=== PATIENT | male | born 1970 | race Caucasian/White ===

== ENCOUNTER 2021-09-15 12:12 | Emergency (ER) | payer BC, SELFPAY ==
[2021-09-15 12:31] VITALS: BP 180/107; PULSE 102; RESP 16; TEMP 36.8; O2SAT 98
--- NOTE | 2021-09-15 12:47 | ECG_ITS ---
Measurements Intervals [place] Rate: 96 P: 15 GA: 147 QRS: -1 QRSD: 101 T: 18 QT: 365 QTc: 463 Interpretive Statements SINUS RHYTHM INCOMPLETE RIGHT BUNDLE BRANCH BLOCK [90+ ms QRS DURATION, TERMINAL R IN V1/V2, 40+ ms S IN I/aVL/V4/V5/V6] INTERPRETATION BASED ON A DEFAULT AGE OF 40 YEARS NO PREVIOUS ECG AVAILABLE FOR COMPARISON Electronically Signed On 09-18-2021 14:15:04 CDT by Cely Lawson M.D.
[2021-09-15 13:01] LABS: Basophils Absolute Auto 0.02 K/mm3 (0.00-0.10); Basophils Percent Auto 0.3 % (0.0-1.0); Eosinophils Absolute Auto 0.05 K/mm3 (0.02-0.50); Eosinophils Percent Auto 0.7 % (1.0-6.0); Hematocrit 46.9 % (40.0-54.0); Hemoglobin 15.6 g/dL (14.0-18.0); Immature Granulocyte Absolute 0.02 K/mm3 (0.00-0.00); Immature Granulocyte Percent A 0.3 % (0.0-0.0); Lymphocytes Absolute Auto 0.65 K/mm3 (1.10-4.50); Lymphocytes Percent Auto 9.5 % (18.0-42.0); Mean Corpuscular HGB Conc 33.3 g/dL (32.0-36.0); Mean Corpuscular Volume 84.1 fL (78.0-102.0); Mean Platelet Volume 10.1 fl (8.7-11.0); Monocytes Absolute Auto 0.55 K/mm3 (0.10-0.90); Monocytes Percent Auto 8.1 % (2.0-11.0); Neutrophils Absolute Auto 5.5 K/mm3 (1.7-7.2); Neutrophils Percent Auto 81.1 % (50.0-70.0); Platelet Count Result 174 K/mm3 (150-420); Red Blood Count 5.58 M/mm3 (4.70-6.10); Red Cell Distribution Width 14.1 % (11.6-14.4); White Blood Count 6.8 K/mm3 (4.8-10.8)
--- NOTE | 2021-09-15 13:01 | ED.DIZZY ---
HPI - Dizziness General Chief Complaint: Dizziness Stated Complaint: dizziness, nausea Time Seen by Provider: 09/15/21 13:03 Source: patient Mode of arrival: ambulatory Limitations: no limitations History of Present Illness HPI Narrative: This is a 50-year-old gentleman with no significant past medical history nonsmoker no alcohol use no illicit drug use presents with a dizziness/ vertigo a sensation that the room is spinning when he moves his head from side to side, with some nausea that occurred yesterday currently no nausea vomiting no headache no blurry vision no chest pain no shortness of breath no fever chills. MD elicited complaint: dizziness Onset (ago): day(s) Timing: gradual onset Severity: mild Description: sense of movement and room spinning History of similar symptoms: No Exacerbating factors: movement/ambulation and change in body position Relieving factors: remaining still Associated symptoms: denies other symptoms Related Data Allergies Allergy/AdvReac Type Severity Reaction Status Date / Time No Known Allergies Allergy Verified 09/15/21 12:34 Review of Systems Review of Systems: All systems reviewed & are unremarkable except as noted in HPI and below PMFSH Past Medical History Medical History Patient denies medical problems Family History Family History Mother Family history of type 2 diabetes mellitus Acute myocardial infarction Social History Social History Smoking status: Never smoker Exam Const: General: no acute distress and alert Orientation/consciousness: patient oriented x3 HENMT: Head: normal to inspection Ears: TM's normal bilaterally Eyes: Conjunctivae: conjunctivae normal Pupils: Equal, round and reactive pupils present EOM: EOMs intact bilaterally Direct Ophthalmoscopy: no photophobia Neck: Neck: normal visual inspection, no lymphadenopathy and no meningeal signs Chest: Chest palpation & inspection: normal inspection of the chest Resp: Effort & Inspection: normal respiratory effort Auscultation: clear to auscultation bilaterally Cardio: Rate: regular rate Rhythm: regular rhythm GI: Auscultation: normal bowel sounds : Testes: Testes normal Urinary Catheter: Urinary Catheter: patent and draining Back/Spine/Pelvis: Back: no CVA tenderness Neuro: General: patient oriented x3, moves all extremities, no meningeal signs, no focal motor deficits and CN's II-XI intact bilaterally Cranial nerves: Yes Nystagmus not present Speech: normal speech Gait exam (Neuro): Normal gait present Extrem: General: normal to inspection and no pedal edema Psych: Mental Status: mental status grossly normal Affect: normal affect Attitude: cooperative Course Course Emergency Course: patient received meclizine, symptoms have improved although while lying still he is asymptomatic, EKG and labs reviewed with patient. EKG does show incomplete right bundle-branch block and his heart rate is 96 blood pressure has improved. Vital Signs Vital signs: Vital Signs Temperature 36.8 C 09/15/21 12:31 Pulse Rate 102 H 09/15/21 12:31 Respiratory Rate 16 09/15/21 12:31 Blood Pressure 180/107 H 09/15/21 12:31 Pulse Oximetry 98 09/15/21 12:31 Temperature 36.8 C 09/15/21 12:31 Pulse Rate 102 H 09/15/21 12:31 Respiratory Rate 16 09/15/21 12:31 Blood Pressure 180/107 H 09/15/21 12:31 Pulse Oximetry 98 09/15/21 12:31 MDM - Dizziness Lab Data Result diagrams: 09/15/21 12:55 Labs: Lab Results 09/15/21 Range/Units 12:55 WBC Pending RBC Pending Hgb Pending Hct Pending MCV Pending MCH Pending MCHC Pending RDW Pending Plt Count Pending MPV Pending Immature Gran % (Auto) Pending Neut % (Auto) Pending Lymph % (Auto) Pending [place]
[2021-09-15] MEDS: MECLIZINE HCL 25 MG TABLET PO (13:07)
[2021-09-15 13:35] LABS: Alanine Aminotransferase 39 U/L (16-63); Albumin Level 3.8 g/dL (3.4-5.0); Alkaline Phosphatase 68 U/L (46-116); Anion Gap 10 mmol/L (8-16); Aspartate Amino Transferase 24 U/L (15-37); Bilirubin,Total 0.8 mg/dL (0.00-1.00); Blood Urea Nitrogen 15 mg/dL (7-18); Calcium 8.6 mg/dL (8.5-10.1); Carbon Dioxide 27 mmol/L (21-32); Chloride 101 mmol/L (98-108); Estimated Glomerular Filt Rate > 60; Glucose 117 mg/dL (70-99); Osmolality Calculated 287 mOsm/kg (285-295); Potassium 3.6 mmol/L (3.5-5.1); Sodium 138 mmol/L (136-145); Total Protein 7.7 g/dL (6.4-8.2)
[2021-09-15 13:49] VITALS: BP 175/100; PULSE 100; RESP 16; TEMP 36.8; O2SAT 98
== END 2021-09-15 13:53 | disposition home or self-care (01) ==
PROVIDERS: Emergency Provider Emergency Medicine
DX: H81.13 Benign paroxysmal vertigo, bilateral (principal)
CPT/HCPCS: 36415; 80053; 85025; 93005; 99283; A9270